=== PATIENT | female | born 1975 | race Caucasian/White ===

== ENCOUNTER → 2022-07-21 12:05 | Outpatient (BNVA) | payer MEDICARE, SELFPAY | PROVIDERS: Visit Provider Nurse Practitioner Family | DX: E03.9 Hypothyroidism, unspecified (principal); M10.9 Gout, unspecified; F41.9 Anxiety disorder, unspecified; R42 Dizziness and giddiness; H66.91 Otitis media, unspecified, right ear; F31.81 Bipolar II disorder | CPT/HCPCS: 80053; 80061; 84443; 84550 ==

== ENCOUNTER → 2023-02-23 11:24 | Outpatient (BNVA) | payer MEDICARE, SELFPAY | PROVIDERS: PCP Nurse Practitioner Family; Visit Provider Nurse Practitioner Family | DX: E78.2 Mixed hyperlipidemia (principal); E03.9 Hypothyroidism, unspecified; F41.9 Anxiety disorder, unspecified; M10.9 Gout, unspecified | CPT/HCPCS: 80053; 80061; 84443 ==

== ENCOUNTER 2023-03-22 15:44 | Inpatient (IN) | payer MEDICARE, SELFPAY ==
[2023-03-22 16:16] VITALS: BMI 37.6
[2023-03-22 16:17] VITALS: BP 136/91; PULSE 103; RESP 17; TEMP 37.3; O2SAT 93
[2023-03-22] MEDS: HYDROcodone-acetaminophen 5-325 mg Tablet 1 TAB PO ×2 (16:48→20:56)
[2023-03-22] MEDS: ampicillin-sulbactam 3 GM in sodium chloride 0.9% (plus) 50 ML IV ×2 (17:31→22:57)
[2023-03-22] MEDS: lactated ringers 1,000 ML 100 ML IV (17:39)
[2023-03-22 17:41] LABS: Basophils # 0.1 10^3/uL (0.0-0.1); Basophils % 0.7 %; Eosinophils % 0.2 %; Hematocrit 40.6 % (37.0-47.0); Hemoglobin 13.7 g/dL (11.5-15.3); Lymphocytes # 1.5 10^3/uL (0.8-4.8); Lymphocytes % 12.4 %; Mean Corpuscular HGB Conc 33.7 g/dL (30.0-36.0); Mean Corpuscular Hemoglobin 31.1 pg (28.0-34.0); Mean Corpuscular Volume 92.1 fl (81-99); Mean Platelet Volume 9.7 fL (7.4-10.4); Monocytes % 7.7 %; Neutrophils # 9.75 10^3/uL (1.8-7.7); Neutrophils % 78.5 %; Nucleated Red Blood Cells % 0 %; Platelet Count 256 10^3/cmm (130-400); Red Blood Count 4.41 10^6/uL (4.1-5.3); Red Cell Distribution Width 13.2 % (12.1-15.1); White Blood Count 12.4 10^3/uL (4.0-10.0)
[2023-03-22 20:00] VITALS: BP 125/83; PULSE 75; RESP 18; TEMP 36.8; O2SAT 95
--- NOTE | 2023-03-22 22:40 | PM.OBGYHP ---
Providers/Chief Complaint Admitting Physician: Varun Dennison MD Primary [facility]: Varun Dennison MD Primary Care Provider: Zoe Galeana NP Chief Complaint: Vulva Abcess HPI [facility] History of Present Illness 48 y.o. G0 c/o two day h/o right vulvar swelling and pain + drainage started 30 minutes ago with bleeding h/o hysterectomy 7 years ago in [place], [place] for bleeding still has both ovaries Medications/Allergies Home Medications Medication Instructions Recorded Confirmed Last Taken Type bupropion HCl 150 mg 24 hr tablet, 150 mg PO QAM 01/30/21 03/22/23 Unknown History extended release clonazepam 2 mg tablet 1 mg PO BID 01/30/21 03/22/23 Unknown History esomeprazole magnesium 40 mg 40 mg PO DAILY PRN 01/30/21 03/22/23 Unknown History capsule,delayed release lamotrigine 200 mg tablet 200 mg PO BID 01/30/21 03/22/23 Unknown History meclizine 25 mg tablet 25 mg PO TID PRN dizziness #90 tabs 07/21/22 03/22/23 Unknown Rx allopurinol 100 mg tablet 100 mg PO DAILY 90 days #90 tabs 02/22/23 03/22/23 Unknown Rx levothyroxine 100 mcg tablet 100 mcg PO DAILY 90 days #90 tabs 02/22/23 03/22/23 Unknown Rx simvastatin 20 mg tablet 20 mg PO .QHS 90 days #90 tabs 02/22/23 03/22/23 Unknown Rx cholecalciferol (vitamin D3) 25 25 mcg PO DAILY 03/17/23 03/22/23 Unknown History mcg (1,000 unit) capsule Allergies Allergy/AdvReac Type Severity Reaction Status Date / Time strawberry Allergy Intermediate ALGY-Hives Verified 03/22/23 14:25 Sulfa (Sulfonamide Allergy Intermediate ALGY-Hives Verified 03/22/23 14:25 Antibiotics) PFSH [facility] PFSH: Medical History Anxiety Bipolar 2 disorder Gout Hypothyroidism Surgical History History of partial hysterectomy Hx of knee surgery Family History (Updated 03/17/23 @ 13:09 by Mabel Oseguera) Denies family history of Colon cancer Ovarian cancer Diabetes Heart disease Breast cancer Hypertension Uterine cancer Thyroid disease Stroke Personal Safety: Do you feel safe at home: Yes Victim of physical abuse: No Victim of emotional abuse: No Victim of sexual abuse: No Vitals/I&O/Wt Last Vital Signs Temp 98.2 F 03/22/23 20:00 Pulse 75 03/22/23 20:00 Resp 18 03/22/23 20:00 BP 125/83 03/22/23 20:00 Pulse Ox 95 03/22/23 20:00 O2 Del Method Room Air 03/22/23 16:17 03/22/23 03/22/23 03/22/23 06:59 14:59 22:59 Intake Total 410 / 410 Balance 410 / 410 Weight last 48 hrs Weight 226 lb 1.6 oz Physical Exam Narrative: Weight 222 lbs; 5?5? Temp 101.5 HEENT: normal Lungs: clear Cor: RRR Abd: soft, nontender Vulva: right vulva grossly swollen, erythematous, fluctuant, and very tender to Palpation Unable to do adequate exam due to pain Data 03/22/23 17:28 A&P Assessment and plan (1) Vulvar abscess: Vulvar abscess fever Plan admit for IV antibiotics Plan incision, exploration, drainage, and packing of right vulvar abscess in OR tomorrow Plan Unasyn IV after admission NPO after midnight Attestations Medical Necessity Statement*: patient with acute onset of right vulvar abscess and fever, admit for IV antibiotics and drainage Coding Level of Care Code Acute Code for Chg Fwd Diagnoses Vulvar abscess N76.4 Time Spent (min) 30
[2023-03-22 23:53] VITALS: BP 117/64; PULSE 66; RESP 17; TEMP 36.7; O2SAT 96
[2023-03-23] VITALS (12 sets, daily range): BP systolic 116–171; BP diastolic 67–104; PULSE 62–75; RESP 15–18; TEMP 36.4–36.9; O2SAT 90–100
[2023-03-23] MEDS: HYDROcodone-acetaminophen 5-325 mg Tablet 1 TAB PO ×4 (00:27→18:45)
[2023-03-23] MEDS: lactated ringers 1,000 ML 100 ML IV (03:16)
[2023-03-23] MEDS: ampicillin-sulbactam 3 GM in sodium chloride 0.9% (plus) 50 ML IV (05:05)
--- NOTE | 2023-03-23 09:46 | PC.CHAP ---
Pastoral Care Encounter/Spiritual Assessment Type of Contact [] Declined health unit coordinator visit [] Patient/Family/Request visit [] Outpatient visit [] Follow-up visit [] Physician referral [] Code/Alert [x] Routine visit [] Staff referral [] Actively dying [] Patient sleeping [x] Family support [] [] Out of room [] Palliative care [] [] Receiving care in room [] Pre-surgical visit [] Trauma [] Long length of stay [] ICU visit [] Other: Relational/Emotional Strength [x] Patient feels connected with others/family/visitors/staff [] Distress [] Loneliness/isolation [] Abandonment Spirituality of Patient [x] Person of Ronna [] Attends Mosque of their Ronna [x] Believes in Prayer [] Reads Bible or Latter Day materials [] There are Spiritual issues to be addressed Director Radio Interventions [x] Prayer [] Active listening [] Non-anxious presence [x] Spiritual/emotional support [] Crisis/trauma care [] Spiritual counseling [] Bereavement support [] Provided bereavement packet [] Provided Bible/devotional materials [] Provided toy/stuffed animal, coloring book to patient or family member [] Provided Communion [] Anointing/[place] [] Salvation [x] Completed spiritual assessment [] Other: Impact on Illness or Injury [] Angry [] Fearful [] Anxious [] Often cries [] Exhaustion [] Unable to work [] Unable to attend yazidi [] Unable to walk/stand [] Unable to read [] Unable to drive [] Unable to eat/drink [] Unable to sleep [] Unable to be with family [] Patient intubated [] Other: Summary Time spent with patient 5 min
--- NOTE | 2023-03-23 10:55 | ANES.PREANE2 ---
Pre-Anesthetic Assessment Height/Weight: Height 1.65 m Weight 102.557 kg Temp Pulse Resp BP Pulse Ox O2 Del Method 97.5 F L 68 16 155/104 100 Room Air 03/23/23 10:42 03/23/23 10:42 03/23/23 10:42 03/23/23 10:42 03/23/23 10:42 03/23/23 10:42 Preop Diagnosis: vulvar abscess Operation Date: 03/23/23 14:40 Proposed Procedures p Incision, Drainage, and packing of vulvar abscess(Not Applicable) - Varun Dennison MD Familial anesthetic complications: None Was Beta [place] taken within 24 hours: N/A Was Clonidine taken within 24 hours: N/A Last intake: Intake Last Liquid Date 03/23/23 Last Liquid Time 04:00 Last Solid Date 03/22/23 Last Solid Time 17:00 Social No alcohol and No tobacco medical marijuana Exam alert, oriented x 3, clear to auscultation bilaterally and regular rate & rhythm Airway Mallampati: Class II Dentition: full interstitial cystitis w/ bladder neurostim - patient informed cautery may interfere with proper functioning of generator GI Gastroesophageal Reflux Disease Metabolic Hyperlipidemia, Morbid Obesity and Thyroid Disease Anesthetic Plan ASA status: 3 Anesthesia: General Risk of > 500 ml blood loss (7ml/kg in children): No Medications/Allergies Home Medications Medication Instructions Recorded Confirmed Last Taken Type bupropion HCl 150 mg 24 hr tablet, 150 mg PO QAM 01/30/21 03/23/23 Unknown History extended release esomeprazole magnesium 40 mg 40 mg PO DAILY PRN Heartburn 01/30/21 03/23/23 Unknown History capsule,delayed release lamotrigine 200 mg tablet 200 mg PO BID 01/30/21 03/23/23 Unknown History meclizine 25 mg tablet 25 mg PO TID PRN dizziness #90 tabs 07/21/22 03/23/23 Unknown Rx cholecalciferol (vitamin D3) 25 25 mcg PO QAM 03/17/23 03/23/23 Unknown History mcg (1,000 unit) capsule allopurinol 100 mg tablet 100 mg PO QAM 03/23/23 03/23/23 Unknown History clonazepam 1 mg tablet See Rx Instructions .Route .COMPLEX 03/23/23 03/23/23 Unknown History levothyroxine 100 mcg tablet 100 mcg PO QAM 03/23/23 03/23/23 Unknown History simvastatin 20 mg tablet 20 mg PO BEDTIME 03/23/23 03/23/23 Unknown History Allergies Allergy/AdvReac Type Severity Reaction Status Date / Time strawberry Allergy Intermediate ALGY-Hives Verified 03/23/23 08:20 Sulfa (Sulfonamide Allergy Intermediate ALGY-Hives Verified 03/23/23 08:20 Antibiotics) Current Medications Generic Name Dose Route Start Last Admin Trade Name Freq PRN Reason Stop Dose Admin Hydrocodone Bitart/Acetaminophen 1 tab 03/22/23 16:21 03/23/23 05:06 Hydrocodone-Acetaminophen 5-325 Mg Tablet PO 1 tab Q4H PRN Administration MODERATE TO SEVERE PAIN Lactated Ringer's 1,000 mls @ 100 mls/hr 03/22/23 16:30 03/23/23 03:16 Lactated Ringers IV 100 mls/hr .Q10H AMERICO Administration Ampicillin Sodium/Sulbactam 50 mls @ 100 mls/hr 03/22/23 17:00 03/23/23 05:37 Sodium 3 gm/ Sodium Chloride IV Infused Q6H AMERICO Infusion Protocol [facility] Anesthesia Medical History Anxiety Bipolar 2 disorder Gout Hypothyroidism Surgical History History of partial hysterectomy Hx of knee surgery Family History (Updated 03/17/23 @ 13:09 by Mabel Oseguera) Denies family history of Colon cancer Ovarian cancer Diabetes Heart disease Breast cancer Hypertension Uterine cancer Thyroid disease Stroke Data Anesthesia 03/22/23 17:28 Short CBC 03/22/23 Range/Units 17:28 WBC 12.4 H (4.0-10.0) 10^3/uL Hgb 13.7 (11.5-15.3) g/dL Hct 40.6 (37.0-47.0) % MCV 92.1 (81-99) fl Plt Count 256 (130-400) 10^3/cmm Neut % (Auto) 78.5 % Neut # (Auto) 9.75 H (1.8-7.7) 10^3/uL Cardiac Studies: No Data to Display
--- NOTE | 2023-03-23 13:56 | ANES.PAUD2 ---
Pre-Anesthetic Update Pre-Anesthetic Assessment: Date of Surgery/Procedure: 03/23/23 Preop Diagnosis: vulvar abscess Proposed Procedure: Operation Date: 03/23/23 14:40 Proposed Procedures p Incision, Drainage, and packing of vulvar abscess(Not Applicable) - Varun Dennison MD Last Intake: Intake Last Liquid Date 03/23/23 Last Liquid Time 04:00 Last Solid Date 03/22/23 Last Solid Time 17:00 Labs Last 48hrs: Short CBC 03/22/23 Range/Units 17:28 WBC 12.4 H (4.0-10.0) 10^3/ uL Hgb 13.7 (11.5-15.3) g/dL Hct 40.6 (37.0-47.0) % MCV 92.1 (81-99) fl Plt Count 256 (130-400) 10^3/c mm Neut % (Auto) 78.5 % Neut # (Auto) 9.75 H (1.8-7.7) 10^3/u L Vitals: Temperature 98 F 03/23/23 12:06 Temperature Source Tympanic 03/23/23 12:06 Pulse Rate 66 03/23/23 12:30 Pulse Rhythm Regular 03/23/23 08:00 Pulse Strength 3+ Normal 03/23/23 08:00 Respiratory Rate 18 03/23/23 12:30 Respiratory Effort Spontaneous 03/23/23 08:00 Respiratory Depth Normal 03/23/23 08:00 Respiratory Patter n Normal 03/23/23 08:00 Blood Pressure 157/101 03/23/23 12:30 Blood Pressure Yanelis n 119 03/23/23 12:30 Pulse Oximetry 98 03/23/23 12:30 Oxygen Delivery Me thod Room Air 03/23/23 12:30 Other Pertinent Information: Other Pertinent Information: 2 mg Versed given preoperatively by [employer] prior to entering the OR. Cardiac Studies: No Data to Display
--- NOTE | 2023-03-23 15:18 | ANE.PACU2 ---
Inpatient post-anesthesia follow up: Airway intact: Yes Vital signs: Temperature 98 F Pulse Rate 71 Respiratory Rate 16 Blood Pressure 139/82 Pulse Oximetry 100 Oxygen Delivery Me thod Room Air Oxygen Flow Rate Fraction of Inspir ed Oxygen Hydration adequate: Yes Nausea and vomiting: No Pain level: 1 Mental status: Baseline
--- NOTE | 2023-03-28 22:16 | PM.OP ---
Operative Report Date of procedure: March 28, 2023 Pre-op diagnosis: Preop Diagnosis vulvar abscess Post-op diagnosis: same Post-op findings: right vulvar abscess 6 cm cavity + copious purulent material Cultures obtained Procedure done: incision, drainage, exploration, and packing of right vulvar abscess Surgeon: Varun Dennison M.D. Estimated blood loss (mL): 5 Complications: none Brief History: patient with painful right vulvar abscess Procedure: Preop Diagnosis right vulvar abscess Post-op diagnosis: same Post-op findings: Procedure done: incision, drainage and packing of Right vulvar abscess Cultures of purulent material from Right vulvar abscess Surgeon: Varun Dennison M.D. Estimated blood loss (mL): 5 cc Complications: none Findings: 6 cm right vulvar abscess with pus Brief History: 48 y.o. presented with one-day h/o right vulvar pain and swelling Procedure: Informed consent was obtained for incision, drainage, and packing of vulvar abscess. The patient was taken to the OR and placed on table. Mask anesthesia was given. Patient was then placed in dorsolithotomy position. The perineum was prepped and draped in the usual sterile fashion. A 6 cm fluctuant right vulvar abscess was identified. A 2 cm incision was made on the surface of the abscess. Immediately, pus and purulent material was obtained. Cultures done. The abscess cavity was explored and cleared. Betadine, 20 cc, was used to irrgate the abscess cavity. A 0.5-inch iodoform was then used to pack the abscess cavity. No bleeding was seen. The patient was then placed supine, awakened, and taken to the RR in good condition. Postoperative condition: good Blood loss: 5 cc Complications: none Sponge and instrument counts correct x two
--- NOTE | 2023-04-12 14:32 | PM.OBGYDC ---
Discharge Providers STAFF MIDWIFE/APPRENTICESHIP DIRECTOR Date of Admission: 03/22/23 15:44 Date of Discharge: 03/23/23 Attending Provider at Admission: Varun Dennison MD Attending Provider at Discharge: Varun Dennison MD Primary STAFF MIDWIFE/APPRENTICESHIP DIRECTOR: Varun Dennison MD Primary Care Provider: Zoe Galeana NP Diagnoses at Discharge Discharge Diagnosis (1) Vulvar abscess: Details from hospital stay: patient given IV antibiotics overnight then had I&D of vulvar abscess in OR on March 23, 2023 Status: Acute Reason for Visit Reason for Visit: Vulva [facility] Hospital Course Hospital Course patient did well following I&D of vulvar abscess and was discharged home History History History 0 Term Miscarriages/Ectopic Living Children Discharge Data Studies Completed and Pending Laboratory Results WBC 12.4 10^3/uL (4.0-10.0) H 03/22/23 17:28 RBC 4.41 10^6/uL (4.1-5.3) 03/22/23 17:28 Hgb 13.7 g/dL (11.5-15.3) 03/22/23 17:28 Hct 40.6 % (37.0-47.0) 03/22/23 17:28 MCV 92.1 fl (81-99) 03/22/23 17:28 MCH 31.1 pg (28.0-34.0) 03/22/23 17:28 MCHC 33.7 g/dL (30.0-36.0) 03/22/23 17:28 RDW 13.2 % (12.1-15.1) 03/22/23 17:28 Plt Count 256 10^3/cmm (130-400) 03/22/23 17:28 MPV 9.7 fL (7.4-10.4) 03/22/23 17:28 Neut % (Auto) 78.5 % 03/22/23 17: Lymph % (Auto) 12.4 % 03/22/23 17:28 [place] % (Auto) 7.7 % 03/22/23 17:28 Eos % (Auto) 0.2 % 03/22/23 17:28 Baso % (Auto) 0.7 % 03/22/23 17:28 Neut # (Auto) 9.75 10^3/uL (1.8-7.7) H 03/22/23 17:28 Lymph # (Auto) 1.5 10^3/uL (0.8-4.8) 03/22/23 17:28 [place] # (Auto) 1.0 10^3/uL (0.2-0.9) H 03/22/23 17:28 Eos # (Auto) 0.0 10^3/uL (0.0-0.8) 03/22/23 17:28 Baso # (Auto) 0.1 10^3/uL (0.0-0.1) 03/22/23 17:28 Nucleated RBC % (auto) 0 % 03/22/23 17: Nucleated RBCs # 0.0 /100WBC 03/22/23 17:28 Procedures Performed incision, drainage, and packing of right vulvar abscess Vitals Last Vital Signs Temp 98.5 F 03/23/23 19:06 Pulse 75 03/23/23 19:06 Resp 16 03/23/23 19:06 BP 136/89 03/23/23 19:06 Pulse Ox 90 03/23/23 19:06 O2 Del Method Room Air 03/23/23 16:00 Discharge Plan Discharge Patient Disposition: Home Condition: Stable Prescriptions: Continued bupropion HCl 150 mg tablet extended release 24 hr 150 mg PO QAM lamotrigine 200 mg tablet 200 mg PO BID esomeprazole magnesium 40 mg capsule,delayed release(DR/EC) 40 mg PO DAILY PRN (Reason: Heartburn) meclizine 25 mg tablet 25 mg PO TID PRN (Reason: dizziness) Qty: 90 0RF cholecalciferol (vitamin D3) 25 mcg (1,000 unit) capsule 25 mcg PO QAM clonazepam 1 mg tablet See Rx Instructions .ROUTE .COMPLEX Rx Instructions: TAKE ONE TABLET BY MOUTH TWICE DAILY, MAY ALSO TAKE ONE EXTRA TAB FOR BREAKTHROUGH ANXIETY NEEDED. allopurinol 100 mg tablet 100 mg PO QAM levothyroxine 100 mcg tablet 100 mcg PO QAM simvastatin 20 mg tablet 20 mg PO BEDTIME No Action oxycodone-acetaminophen [Percocet] 5-325 mg tablet 1 tab PO Q8H MDD 4 tablets PRN (Reason: pain) 5 Days Qty: 20 0RF Discharge Orders: Discharge Order (Routine); Ordered 03/23/23 Ordered By: Varun Dennison Referrals: Zoe Galeana NP [Primary Care Provider] - (Please call Wednesday morning to schedule a follow up appointment.) Discharge Diet: Usual diet Discharge Activity: Increase activity as tolerated Patient Instructions: Abscess Incision and Drainage (GEN), Opioid Safety, Wound Care (General) Discharge Attestations STAFF MIDWIFE/APPRENTICESHIP DIRECTOR Time Spent in Discharge Care*: less than 30 min Coding Level of Care Code Acute Code for Chg Fwd Diagnoses Vulvar abscess N76.4 Time Spent (min) 25
== END 2023-03-23 19:00 | disposition home or self-care (01) | DRG 746 ==
PROVIDERS: Admitting Provider Obstetrics & Gynecology; PCP Nurse Practitioner Family; Visit Provider Obstetrics & Gynecology
PROC: 0U9M0ZZ Drainage of Vulva, Open Approach (ICD-10-PCS; principal; 2023-03-23 14:30)
DX: N76.4 Abscess of vulva (principal); F31.81 Bipolar II disorder; F41.9 Anxiety disorder, unspecified; M10.9 Gout, unspecified; E03.9 Hypothyroidism, unspecified
CPT/HCPCS: 85025; 87070; 87075; 87205; J0295; J1100; J1170; J1885; J2250; J2405; J2704; J3010; J3490; J7120

== ENCOUNTER → 2023-04-08 10:03 | Outpatient (BNVA) | payer MEDICARE, SELFPAY | PROVIDERS: PCP Nurse Practitioner Family; Visit Provider Obstetrics & Gynecology | DX: R30.0 Dysuria (principal); N39.0 Urinary tract infection, site not specified | CPT/HCPCS: 81000; 87086 ==

== ENCOUNTER 2023-04-16 08:33 | Outpatient (CLI) | payer MEDICARE, SELFPAY ==
--- NOTE | 2023-04-16 08:59 | MM_ITS ---
WS: [id number] Bilateral screening 3D tomosynthesis digital mammogram, 04/16/2023 Clinical Data: SCREENING Comparison: 05/01/2020, 05/04/2019, 05/03/2018, 06/05/2016, 05/01/2016. Findings: The breast parenchymal pattern shows fibroglandular tissue. No spiculated masses or clustered calcifi cations are seen. There are no secondary signs of carcinoma. MM/[place] [id number] Impression: 1. Negative bilateral mammogram unchanged. 2. Recommend annual screening mammograms. BIRADS: 1-Negative FOLLOW UP: 1 Year Follow-up The CAD security checker was used.
== END 2023-04-16 08:34 | disposition home or self-care (01) ==
PROVIDERS: PCP Nurse Practitioner Family; Visit Provider Obstetrics & Gynecology
DX: Z12.31 Encounter for screening mammogram for malignant neoplasm of breast (principal)
CPT/HCPCS: 77063; 77067

== ENCOUNTER → 2023-06-14 14:16 | Outpatient (BNVA) | payer MEDICARE, SELFPAY | PROVIDERS: PCP Nurse Practitioner Family; Visit Provider Nurse Practitioner Family | DX: R39.9 Unspecified symptoms and signs involving the genitourinary system (principal); R33.9 Retention of urine, unspecified; N39.0 Urinary tract infection, site not specified | CPT/HCPCS: 81003; 87077; 87086; 87184 ==

== ENCOUNTER → 2023-08-13 10:28 | Outpatient (BNVA) | payer MEDICARE, SELFPAY | PROVIDERS: PCP Nurse Practitioner Family; Visit Provider Nurse Practitioner Family | DX: M25.512 Pain in left shoulder (principal); M77.8 Other enthesopathies, not elsewhere classified | CPT/HCPCS: 73030 ==

== ENCOUNTER → 2023-08-20 11:50 | Outpatient (BNVA) | payer MEDICARE, SELFPAY | PROVIDERS: PCP Nurse Practitioner Family; Visit Provider Nurse Practitioner Family | DX: M77.8 Other enthesopathies, not elsewhere classified (principal); M25.512 Pain in left shoulder; M25.50 Pain in unspecified joint; E78.2 Mixed hyperlipidemia; E03.9 Hypothyroidism, unspecified; M10.9 Gout, unspecified; E55.9 Vitamin D deficiency, unspecified | CPT/HCPCS: 80053; 85651; 86140; 86200; 86431 ==

== ENCOUNTER 2023-08-27 14:12 | Outpatient (CLI) | payer MEDICARE, SELFPAY ==
--- NOTE | 2023-08-27 15:30 | CT_ITS ---
WS: [id number] CT LEFT SHOULDER, NONCONTRAST HISTORY: left shoulder pain Technique: All CT scans at [facility] use at least one of these dose optimization techniques: automated exposure control; mA and/or kV adjustment per patient size (includes targeted exams where dose is matched to clinical indication); or iterative reconstruction. DLP: 517.82 mGy.cm COMPARISON: Radiographs 08/13/2023 No acute fracture or dislocation. Mild narrowing of the AC joint. Os acromion is noted. Normal glenoh umeral joint. Normal appearance of the soft tissues. Several nodules are noted within the LEFT thorax. The largest is subpleural measuring 9 mm at its max imum. Nodule is in the periphery of the LEFT lower lobe. There are additional nodules along the LEFT fissure which are typically benign. No adjacent adenopathy. The visualized heart is negative. IMPRESSION: 1. No fracture or dislocation. 2. Os acromion. 3. LEFT lung nodules. Four lung nodules are identified. Recommend follow-up chest CT in 3 months. The se lung nodules will need to be followed for stability. These may be postinflammatory nodules. Neopla sm needs to be excluded.
== END 2023-08-27 14:13 | disposition home or self-care (01) ==
LOC: RAD 14:13
PROVIDERS: PCP Nurse Practitioner Family; Visit Provider Nurse Practitioner Family
DX: M25.512 Pain in left shoulder (principal); M77.8 Other enthesopathies, not elsewhere classified
CPT/HCPCS: 73200

== ENCOUNTER → 2023-09-21 08:36 | Outpatient (BNVA) | payer MEDICARE, SELFPAY | PROVIDERS: PCP Nurse Practitioner Family; Visit Provider Physician Assistant | DX: G56.02 Carpal tunnel syndrome, left upper limb | CPT/HCPCS: 99203 ==

== ENCOUNTER → 2023-10-08 17:35 | Outpatient (BNVA) | payer MEDICARE, SELFPAY | PROVIDERS: PCP Nurse Practitioner Family; Visit Provider Nurse Practitioner Family | DX: N39.0 Urinary tract infection, site not specified (principal) | CPT/HCPCS: 81000 ==

== ENCOUNTER 2023-11-26 13:37 | Outpatient (CLI) | payer MEDICARE, SELFPAY ==
--- NOTE | 2023-11-26 14:00 | CT_ITS ---
WS: [id number] CT chest w con* [id number] HISTORY: pulmonary nodules abnormal CT shoulder TECHNIQUE: Axial imaging performed through the thorax. Coronal and sagittal reformats are submitted. All CT scans at [facility] use at least one of these dose optimization techniques: automated exposure control; mA and/or kV adjustment per patient size (includes targeted exams where dose is mat ched to clinical indication); or iterative reconstruction. CONTRAST: Omnipaque 350; 100 mL IV. DLP: 468.15 mGy.cm COMPARISON: LEFT shoulder CT Lungs and central airway: Previously described noncalcified pulmonary nodules in the LEFT lung are re identified. The largest nodule is subpleural measuring 9.5 mm and unchanged in size. Closely associat ed with the fissure. There are several additional satellite nodules in the same distribution. I favor these are probably perifissural nodules which are benign. No increase in size or number. No addition al abnormality. Pleura: Normal. No pleural effusion. Heart and pericardium: Normal size heart with no pericardial effusion. Mediastinum and shelbi: No mediastinum or hilar adenopathy. Vessels: Normal size aortic and pulmonary artery. No coronary artery calcifications. Chest wall and lower neck: No soft tissue masses. Upper abdomen: Seen on the last few images through the RIGHT kidney are several foci of air in the re nal pelvis and proximal ureter of uncertain etiology. There is mild cortical thinning of the posterio r upper pole. Osseous structures: No destructive process. IMPRESSION: 1. No interval change in size or number of the noncalcified subcentimeter pulmonary nodules in the R IGHT lung. These nodules appear to be along the distribution of the fissure. These are most likely be nign perifissural nodules. Consider additional chest CT follow-up in 6 to 12 months. 2. There are a few foci of air in the RIGHT renal pelvis. Only a small portion of the RIGHT kidney i s included. Etiology of this air may be due to an infection. Alternatively fistulous communication wi th the urological system would produce similar findings although this is probably unlikely as the pat ient is asymptomatic.
[2023-11-26] MEDS: iohexol 350 mg/mL 500 mL Btl (per mL) IV (14:50)
== END 2023-11-26 13:38 | disposition home or self-care (01) ==
LOC: RAD 13:39
PROVIDERS: PCP Nurse Practitioner Family; Visit Provider Nurse Practitioner Family
DX: R91.8 Other nonspecific abnormal finding of lung field (principal); R93.41 Abnormal radiologic findings on diagnostic imaging of renal pelvis, ureter, or bladder
CPT/HCPCS: 71260; Q9967

== ENCOUNTER → 2024-01-17 11:35 | Outpatient (BNVA) | payer MEDICARE, SELFPAY | PROVIDERS: PCP Nurse Practitioner Family; Visit Provider Nurse Practitioner Family | DX: F41.9 Anxiety disorder, unspecified (principal); F31.81 Bipolar II disorder; E78.2 Mixed hyperlipidemia; E03.9 Hypothyroidism, unspecified | CPT/HCPCS: 80053; 80061; 84443; 85025 ==

== ENCOUNTER → 2024-06-01 07:26 | Outpatient (BNVA) | payer MEDICARE, SELFPAY | PROVIDERS: PCP Nurse Practitioner Family; Visit Provider Surgery | DX: K61.1 Rectal abscess (principal) | CPT/HCPCS: 99204 ==

== ENCOUNTER → 2024-11-21 11:15 | Outpatient (BNVA) | payer MEDICARE, SELFPAY | PROVIDERS: PCP Nurse Practitioner Family; Visit Provider Nurse Practitioner Family | DX: E03.9 Hypothyroidism, unspecified (principal); M10.9 Gout, unspecified; Z79.899 Other long term (current) drug therapy | CPT/HCPCS: 80053; 80061; 84443; 85025 ==

== ENCOUNTER → 2025-03-06 09:50 | Outpatient (BNVA) | payer MEDICARE, SELFPAY | PROVIDERS: PCP Nurse Practitioner Family; Visit Provider Nurse Practitioner Family | DX: R35.0 Frequency of micturition (principal); E78.2 Mixed hyperlipidemia; E03.9 Hypothyroidism, unspecified; N30.01 Acute cystitis with hematuria; R79.89 Other specified abnormal findings of blood chemistry; Z12.31 Encounter for screening mammogram for malignant neoplasm of breast | CPT/HCPCS: 80053; 81000; 84443; 87086 ==

== ENCOUNTER 2025-03-28 13:53 | Outpatient (CLI) | payer MEDICARE, SELFPAY ==
--- NOTE | 2025-03-28 14:00 | MM_ITS ---
WS: [id number] BILATERAL 3D TOMOSYNTHESIS DIGITAL SCREENING MAMMOGRAPHY WITH CAD CLINICAL INFORMATION: Z12.39 - Encounter for other screening for malignant neop... HISTORY: Screening mammogram. No current complaints. COMPARISON: 2022 TECHNIQUE: Bilateral CC and MLO views. FINDINGS: Scattered fibroglandular densities bilaterally. Incidental punctate calcifications LEFT breast. Lobulated old outer LEFT breast progress compared to previous may present a lymph node of indeterminate. This measures approximately 1.4 cm. Recommend further evaluation with LEFT breast diagnostic mammography and ultrasound. MM/MM [facility] tomosynthesis [id number] IMPRESSION: DENSITY: There are scattered areas of fibroglandular density. BI-RADS: 0 - Incomplete: Need additional imaging evaluation. FOLLOW UP: Need Additional Imaging Recommend LEFT breast diagnostic mammography and ultrasound.
== END 2025-03-28 13:54 | disposition home or self-care (01) ==
LOC: MOBLMAM 13:55
PROVIDERS: PCP Nurse Practitioner Family; Visit Provider Nurse Practitioner Family
DX: Z12.31 Encounter for screening mammogram for malignant neoplasm of breast (principal); R92.323 Mammographic fibroglandular density, bilateral breasts; R92.1 Mammographic calcification found on diagnostic imaging of breast; N63.20 Unspecified lump in the left breast, unspecified quadrant
CPT/HCPCS: 77063; 77067

== ENCOUNTER 2025-04-16 13:25 | Outpatient (CLI) | payer MEDICARE, SELFPAY ==
--- NOTE | 2025-04-16 14:15 | MM_ITS ---
WS: [id number] LEFT 3D TOMOSYNTHESIS DIGITAL MAMMOGRAPHY WITH CAD CLINICAL INFORMATION: R92.8 - Other abnormal and inconclusive findings on diagn... HISTORY: Additional views COMPARISON: 2024 TECHNIQUE: 3 views of the left breast were obtained. FINDINGS: Scattered fibroglandular densities of the left breast. Previously described lobulated nodule outer LEFT breast is unchanged. Ultrasound is pending below. ULTRASOUND BREAST LEFT TECHNIQUE: Ultrasound left breast focused area of concern. CLINICAL INFORMATION: R92.8 - Other abnormal and inconclusive findings on diagn... FINDINGS: Ultrasound LEFT breast 3 to 6 o'clock position Lobulated cystic-appearing lesion at the 3 o'clock position with a small amount of internal debris likely represents a complex lobulated cyst. Recommend 6-month follow-up ultrasound and diagnostic mammography to confirm stability MM/MM diag LT tomosynthesis [id number] IMPRESSION: DENSITY: There are scattered areas of fibroglandular density. BI-RADS: 3 - Probably Benign. FOLLOW UP: 6 Month Follow-up Recommend 6-month follow-up RIGHT breast diagnostic mammography and ultrasound to confirm stability
--- NOTE | 2025-04-16 14:45 | US_ITS ---
WS: [id number] LEFT 3D TOMOSYNTHESIS DIGITAL MAMMOGRAPHY WITH CAD CLINICAL INFORMATION: R92.8 - Other abnormal and inconclusive findings on diagn... HISTORY: Additional views COMPARISON: 2024 TECHNIQUE: 3 views of the left breast were obtained. FINDINGS: Scattered fibroglandular densities of the left breast. Previously described lobulated nodule outer LEFT breast is unchanged. Ultrasound is pending below. ULTRASOUND BREAST LEFT TECHNIQUE: Ultrasound left breast focused area of concern. CLINICAL INFORMATION: R92.8 - Other abnormal and inconclusive findings on diagn... FINDINGS: Ultrasound LEFT breast 3 to 6 o'clock position Lobulated cystic-appearing lesion at the 3 o'clock position with a small amount of internal debris likely represents a complex lobulated cyst. Recommend 6-month follow-up ultrasound and diagnostic mammography to confirm stability US/US breast LT limited* [id number] IMPRESSION: DENSITY: There are scattered areas of fibroglandular density. BI-RADS: 3 - Probably Benign. FOLLOW UP: 6 Month Follow-up Recommend 6-month follow-up RIGHT breast diagnostic mammography and ultrasound to confirm stability
== END 2025-04-16 13:26 | disposition home or self-care (01) ==
LOC: RAD 13:26
PROVIDERS: PCP Nurse Practitioner Family; Visit Provider Nurse Practitioner Family
DX: R92.8 Other abnormal and inconclusive findings on diagnostic imaging of breast (principal); N60.02 Solitary cyst of left breast; R92.322 Mammographic fibroglandular density, left breast
CPT/HCPCS: 76641; 76642; 77061; G0279

== ENCOUNTER → 2025-07-05 14:01 | Outpatient (BNVA) | payer MEDICARE, SELFPAY | PROVIDERS: PCP Nurse Practitioner Family; Visit Provider Nurse Practitioner Family | DX: R10.9 Unspecified abdominal pain (principal) | CPT/HCPCS: 81000 ==

== ENCOUNTER → 2025-08-20 11:46 | Outpatient (BNVA) | payer MEDICARE, SELFPAY | PROVIDERS: PCP Nurse Practitioner Family; Visit Provider Nurse Practitioner Family | DX: E03.9 Hypothyroidism, unspecified (principal) | CPT/HCPCS: 80053; 80061; 84443; 85025 ==

== ENCOUNTER 2025-08-30 08:56 | Outpatient (CLI) | payer MEDICARE, SELFPAY ==
--- NOTE | 2025-08-30 09:30 | MM_ITS ---
WS: [id number] LEFT 3D TOMOSYNTHESIS DIGITAL MAMMOGRAPHY WITH CAD CLINICAL INFORMATION: R92.8 - Other abnormal and inconclusive findings on diagn... HISTORY: 6-month follow-up. COMPARISON: 2024 TECHNIQUE: 3 views of the left breast were obtained. FINDINGS: Scattered fibroglandular densities of the left breast. Previously described lobulated nodule lateral LEFT breast is unchanged. Ultrasound described below. ULTRASOUND BREAST LEFT TECHNIQUE: Ultrasound left breast focused area of concern. CLINICAL INFORMATION: R92.8 - Other abnormal and inconclusive findings on diagn... FINDINGS: Previously described lobulated cyst at the 3 o'clock position 5 cm from the nipple is unchanged in appearance measuring 1.1 x 1.4 x 0.4 cm. Stability is reassuring. Recommend return to annual screening mammography MM/MM diag LT tomosynthesis [id number] IMPRESSION: DENSITY: There are scattered areas of fibroglandular density. BI-RADS: 2 - Benign. FOLLOW UP: 1 Year Follow-up Recommend return to annual screening mammography.
--- NOTE | 2025-08-30 10:34 | US_ITS ---
WS: [id number] LEFT 3D TOMOSYNTHESIS DIGITAL MAMMOGRAPHY WITH CAD CLINICAL INFORMATION: R92.8 - Other abnormal and inconclusive findings on diagn... HISTORY: 6-month follow-up. COMPARISON: 2024 TECHNIQUE: 3 views of the left breast were obtained. FINDINGS: Scattered fibroglandular densities of the left breast. Previously described lobulated nodule lateral LEFT breast is unchanged. Ultrasound described below. ULTRASOUND BREAST LEFT TECHNIQUE: Ultrasound left breast focused area of concern. CLINICAL INFORMATION: R92.8 - Other abnormal and inconclusive findings on diagn... FINDINGS: Previously described lobulated cyst at the 3 o'clock position 5 cm from the nipple is unchanged in appearance measuring 1.1 x 1.4 x 0.4 cm. Stability is reassuring. Recommend return to annual screening mammography US/US breast LT limited* [id number] IMPRESSION: DENSITY: There are scattered areas of fibroglandular density. BI-RADS: 2 - Benign. FOLLOW UP: 1 Year Follow-up Recommend return to annual screening mammography.
== END 2025-08-30 08:57 | disposition home or self-care (01) ==
LOC: RAD 08:58
PROVIDERS: PCP Nurse Practitioner Family; Visit Provider Nurse Practitioner Family
DX: R92.8 Other abnormal and inconclusive findings on diagnostic imaging of breast (principal); N63.21 Unspecified lump in the left breast, upper outer quadrant; R92.323 Mammographic fibroglandular density, bilateral breasts
CPT/HCPCS: 76642; 77061; G0279

== ENCOUNTER → 2025-10-24 08:39 | Outpatient (BNVA) | payer MEDICARE, SELFPAY | PROVIDERS: PCP Nurse Practitioner Family; Visit Provider Nurse Practitioner Family | DX: R39.9 Unspecified symptoms and signs involving the genitourinary system (principal) | CPT/HCPCS: 81000; 87077; 87086; 87186 ==

== ENCOUNTER → 2025-11-07 08:48 | Outpatient (BNVA) | payer MEDICARE, SELFPAY | PROVIDERS: PCP Nurse Practitioner Family; Visit Provider Nurse Practitioner Family | DX: N39.0 Urinary tract infection, site not specified (principal) | CPT/HCPCS: 81000 ==